=== PATIENT | female | born 1930 | race Caucasian/White ===

== ENCOUNTER 2016-08-17 12:08 | Outpatient (CLI) | payer OTHER ==
[2012-10-28 14:31] VITALS: BMI 30.6
[2016-08-17 14:25] LABS: BILIRUBIN,URINE Negative (NEGATIVE); KETONES,URINE Negative (NEGATIVE); LEUKOCYTE ESTERASE ,URINE Negative (NEGATIVE); NITRITE,URINE Negative (NEGATIVE); PH,URINE 6.5 (5-9); PROTEIN,URINE Negative (NEGATIVE); URINE, BLOOD Negative (NEGATIVE)
[2016-08-17 14:27] LABS: BASOPHILS % (AUTO) 0.6 % (0.0-3.0); EOSINOPHILS # (AUTO) 0.2 K/ul (0.0-0.7); EOSINOPHILS % (AUTO) 3.1 % (0.0-7.0); HEMATOCRIT 40.1 % (37.0-47.0); HEMOGLOBIN 13.4 g/dl (12.0-16.0); IMMATURE GRANULOCYTE % (AUTO) 0.6 % (0.0-5.0); LYMPHOCYTES # (AUTO) 1.3 K/uL (0.60-3.4); LYMPHOCYTES % (AUTO) 20.2 (10.0-50.0); MEAN CORPUSCULAR HEMOGLOBIN 30.3 pg (27.0-31.0); MEAN CORPUSCULAR HGB CONC 33.4 (31.8-35.4); MEAN CORPUSCULAR VOLUME 90.7 fl (81.0-99.0); MONOCYTES # (AUTO) 0.7 K/uL (0.4-2.0); MONOCYTES % (AUTO) 10.5 (0-10); NEUTROPHILS # (AUTO) 4.1 K/ul (2.0-6.9); PLATELET COUNT 244 10^3/uL (140-440); RED BLOOD COUNT 4.42 10^6/ul (4.20-5.40); WHITE BLOOD COUNT 6.38 K/ul (4.6-10.2)
[2016-08-17 14:29] LABS: ADD URINE MICROSCOPIC NO
[2016-08-17 15:35] LABS: ALBUMIN 3.7 g/dL (3.4-5.0); ALBUMIN/GLOBULIN RATIO 1.16; ANION GAP 13.5; BILIRUBIN,TOTAL 0.88 mg/dL (0.00-1.20); BUN/CREATININE RATIO 17.8; CALCIUM 9.3 mg/dL (8.2-10.2); CHOL/HDL RATIO 2.2 (4.5-5.5); CREATININE 0.73 mg/dL (0.60-1.30); POTASSIUM 3.5 mmol/L (3.5-5.10); TOTAL PROTEIN 6.9 g/dL (5.8-8.1)
== END 2016-08-17 12:09 | disposition home or self-care (01) ==
LOC: LAB 12:08
PROVIDERS: ATTEND General Practice
DX: E78.5 Hyperlipidemia, unspecified (principal); I10 Essential (primary) hypertension; R20.0 Anesthesia of skin; Z79.899 Other long term (current) drug therapy
CPT/HCPCS: 36415; 80053; 80061; 81001; 82607; 83036; 84443; 85025

== ENCOUNTER 2016-09-08 09:52 | Outpatient (CLI) ==
[2012-10-28 14:31] VITALS: BMI 30.6
--- NOTE | 2016-09-08 11:20 | MAMMO ---
EXAM: Screening mammogram HISTORY: Screening COMPARISON: 08/18/2015 FINDINGS: MLO and CC views of the right and left breast were performed. The breast tissue is almos t entirely fatty replaced. There is no evidence for mass, asymmetry, distortion, or suspicious calc ifications in either breast. IMPRESSION: 1. No mammographic evidence of malignancy in the right or left breast. 2. Annual screening mammogram is recommended in one year. BIRADS category 1, negative examination
== END 2016-09-08 09:53 | disposition home or self-care (01) ==
LOC: RAD 09:52
PROVIDERS: ATTEND General Practice
DX: Z12.31 Encounter for screening mammogram for malignant neoplasm of breast (principal)

== ENCOUNTER 2016-09-19 11:28 | Outpatient (CLI) ==
[2012-10-28 14:31] VITALS: BMI 30.6
[2016-09-19 15:50] LABS: BASOPHILS # (AUTO) 0.1 K/uL (0-0.2); EOSINOPHILS # (AUTO) 0.3 K/ul (0.0-0.7); HEMATOCRIT 40.5 % (37.0-47.0); HEMOGLOBIN 13.2 g/dl (12.0-16.0); IMMATURE GRANULOCYTE % (AUTO) 0.7 % (0.0-5.0); LYMPHOCYTES # (AUTO) 1.2 K/uL (0.60-3.4); LYMPHOCYTES % (AUTO) 15.9 (10.0-50.0); MEAN CORPUSCULAR HEMOGLOBIN 30.2 pg (27.0-31.0); MEAN CORPUSCULAR HGB CONC 32.6 (31.8-35.4); MEAN CORPUSCULAR VOLUME 92.7 fl (81.0-99.0); MONOCYTES # (AUTO) 0.6 K/uL (0.4-2.0); NEUTROPHILS # (AUTO) 5.1 K/ul (2.0-6.9); NEUTROPHILS % (AUTO) 70.4; PLATELET COUNT 270 10^3/uL (140-440); RED BLOOD COUNT 4.37 10^6/ul (4.20-5.40); WHITE BLOOD COUNT 7.29 K/ul (4.6-10.2)
[2016-09-19 15:55] LABS: BILIRUBIN,URINE Negative (NEGATIVE); KETONES,URINE Negative (NEGATIVE); LEUKOCYTE ESTERASE ,URINE Negative (NEGATIVE); NITRITE,URINE Negative (NEGATIVE); PROTEIN,URINE Negative (NEGATIVE); URINE, BLOOD Negative (NEGATIVE)
[2016-09-19 16:03] LABS: ADD URINE MICROSCOPIC NO
== END 2016-09-19 11:29 | disposition home or self-care (01) ==
LOC: LAB 11:28
PROVIDERS: ATTEND General Practice
DX: J32.0 Chronic maxillary sinusitis (principal); R30.9 Painful micturition, unspecified
CPT/HCPCS: 36415; 81001; 85025

== ENCOUNTER 2017-01-26 09:00 | Outpatient (RCR) ==
[2012-10-28 14:31] VITALS: BMI 30.6
--- NOTE | 2017-01-16 15:01 | RS.OPPTEV2 ---
Date of Note: 01/16/17 Visit #: 1 Date of Evaluation: 01/16/17 Payer Source: MEDICARE Surgery Performed?: Yes (L Total shld ) Procedure Performed: L Reverse Total shld replacement Date of Procedure: 11/22/16 Treatment Diagnosis: OA L shld History of Condition/Mechanism of Injury:: pt with long history of arthritic changes L shld with pain and decreased ROM. pt s/p L reverse total shld replacement on 11/22/16. Prior Level of Function.....Patient was independent with: ADL's, Self Care, Ambulation/Mobility Functional Limitations: ADL's, Reaching, Pushing, Lifting, Carrying Current Subjective/complaints:: pt states that she is going to [place] in 3 weeks to stay for the winter. pt states that she has been using pulleys at home. pt lives with sister. Treatment Side (optional): Left *Precautions: no external rotation past neutral Medical History Medical History: Hypertension Medical History Comments:: pain management for back, macular degeneration. Surgical History Comments:: nerve surgery in her neck when she was 28yrs old. Smoking Status: Former smoker Hx Home Medications: metoprolol tartrate, simvastatin, losartan, gabapentin, amlodipine besylate, furosemide, lorazepam, zolpidem, potassium, preservision, multivitamin, hydrocodone/acetaminophen Patient's Goals: pt goal is to be able to use her L UE functionally with less pain. Pain Assessment - Pain Description Pain Location: L shld Pain Description: Tightness, Aching Current Pain Intensity: 4-5/10 at rest, 7-8/10 with ROM Worst Pain Intensity: 8/10 Other Comments regarding Pain:: pain increases with ROM Functional Outcome Measure UE Functional Index: 53 (34%) - G Codes & Severity Modifier G Codes & Modifier: mobility current CJ. mobility goal CI Source of G Code score: upper extremity functional index Observation - Observation Inspection: min edema L shld Posture: Forward Head, Rounded Shoulders, Increased Thoracic Kyphosis Handedness: Right Gait - Gait Pattern General Gait Pattern Observation: No Deviations/Normal Gait Comments: pt amb without AD independently General Range of Motion: RUE and BLE WFL's Muscle Strength: RUE and BLE 5/5. Typewriter Mechanic strength RUE 32#, LUE 20# Shoulder ROM: Right WFL's Shoulder Muscle Strength: Right WFL's - Left Shoulder ROM Left Shoulder Flexion: 78 (AROM) Left Shoulder Abduction: 60 (AROM) Left Shoulder ROM Limitations: Soft Tissue Tightness, Pain Comments: AAROM L shld flex 86, abd 68 - Left Shoulder Strength Left Shoulder Flexion: 3- Fair- Left Shoulder Abduction: 2+ Poor+ Left Shoulder Adduction: 3 Fair Left Shoulder Internal Rotation: 3 Fair Palpation Palpation Findings: Tenderness (anterior L shld) Sensation - Sensation Right Upper Extremity: Intact/Normal Left Upper Extremity: Intact/Normal Right Lower Extremity: Impaired Left Lower Extremity: Impaired (B feet R worse than L) Sensation Description: Tingling Balance - Sitting Balance Static Sitting Balance: Normal Dynamic Sitting Balance: Normal - Standing Balance Static Standing Balance: Normal Dynamic Standing Balance: Normal - Heat/Cryotherapy Treatment: Cryotherapy Comments:: L shld Interventions - Exercise/Activities/Manual Therapy Exercises/Activities: pt performed AAROM shld flex with pulleys, wall walking flex and abd, pt also instructed in isometric shld flex, ext, abd, and add. pt also received gentle AAROM shld flex and abd, elbow flex/ext Manual Therapy: n/a HOME EXERCISE PROGRAM: pt given written HEP with isometric shld flex, ext, abd, add, as well as wand ex for AAROM shld flex. - Charges Total Direct Minutes: 52 Total Treatment Time: 52 Procedures billed for this date of service:: eve diaz Assessment Assessment: pt presents with decreased L shld ROM, strength, pain in L shld, as well as edema L shld. pt requires skilled PT for therex for gentle stretching, ROM as well as strengthening, along with modalities to decrease pain and increase ROM and strength to improve functional mobility Patient Education: Home Exercise Program, Activity Modification, Education of Plan of Care Rehab Potential: Good Short Term Goals Goal #1: Improved L shld AAROM flex 90, abd 75 Goal to be met by: 01/23/17 Goal #2: pt rate pain <7/10 with activity Goal to be met by: 01/23/17 Printer Assistant Goals Goal #1: pt demonstrate improved L shld AROM flex 100 abd 90 Goal to be met by: 02/06/17 Goal #2: pt with decreased pain L shld <5/10 with mobility Goal to be met by: 02/06/17 Goal #3: pt able to perform functional activities with LUE with decreased pain. Goal to be met by: 02/06/17 Goal #4: pt with improved strength L shld 3+/5 to 4-/5 and independent with HEP Goal to be met by: 02/06/17 Plan - Treatment to be Provided Procedures: Therapeutic Exercises, Therapeutic Activity, Neuromuscular Rehab, Manual Therapy, Patient Education Modalities: Electrical Stimulation, Cryotherapy, Hot Packs - Treatment Plan Frequency: 2 X week Duration: 3 weeks ORDER # VISITS AND/OR THROUGH DATE: 02/06/17 - Treatment Code (1) Pain in joint, shoulder region Code(s): M25.519 - PAIN IN UNSPECIFIED SHOULDER Qualifiers: Laterality: left Qualified Code(s): M25.512 - Pain in left shoulder (2) Aftercare following shoulder joint replacement surgery Code(s): Z47.1 - AFTERCARE FOLLOWING JOINT REPLACEMENT SURGERY; Z96.619 - PRESENCE OF UNSPECIFIED ARTIFICIAL SHOULDER JOINT Qualifiers: Laterality: left Qualified Code(s): Z47.1 - Aftercare following joint replacement surgery; Z96.612 - Presence of left artificial shoulder joint; Z96.612 - Presence of left artificial shoulder joint (3) Primary osteoarthritis of left shoulder Code(s): M19.012 - PRIMARY OSTEOARTHRITIS, LEFT SHOULDER
--- NOTE | 2017-01-19 10:02 | RS.OPPTDN ---
Subjective Date of Note: 01/19/17 Visit #: 2 Date of Evaluation: 01/16/17 Payer Source: MEDICARE Treatment Diagnosis: OA L shld Current Subjective/complaints:: Patient reports she is working on HEP as instructed. Reports soreness anterior left shoulder joint with AAROM exercises. Reports bilateral upper trap discomfort with increased activity at home. *Precautions: no external rotation past neutral Pain Assessment - Pain Description Pain Location: L shld Pain Description: Tightness, Aching Current Pain Intensity: 4/10 at rest, 7/10 with ROM Interventions - Exercise/Activities/Manual Therapy Exercises/Activities: In supine, PROM of the left shoulder. AAROM shld flex, scaption, and short IR/ER. Wand for chest press, short range flexion, and short range ER. Isometrics of left shoulder flex, ext, add, abd, and IR/ER. Isometric left elbow flex/ext. Wall walking shouler flex at finger ladder. In sitting, AAROM into flexion, scaption, and limited abduction. Clasped hands for AA flexion and scapular pro/retraction. Green theraband for bilateral shoulder extension and scapular retraction. Total minutes of Exercise: 30mins Manual Therapy: n/a HOME EXERCISE PROGRAM: pt given written HEP with isometric shld flex, ext, abd, add, as well as wand ex for AAROM shld flex. Wall walking. Green theraband for scapular retraction. - Objective Findings Observations,measurements,etc.: Patient demos flexion to 95 degrees with wall walking. - Charges Total Direct Minutes: 30mins Total Treatment Time: 35mins Procedures billed for this date of service:: EX2 Assessment: Patient is able to progress with AAROM and postural strengthening exercises. Patient Education: Body/Joint mechanics, Home Exercise Program, Home Safety, Activity Modification Patient demonstrates compliance with HEP?: Yes Short Term Goals Goal #1: Improved L shld AAROM flex 90, abd 75 Goal to be met by: 01/23/17 Progress towards Goal:: Progressing Goal #2: pt rate pain <7/10 with activity Goal to be met by: 01/23/17 Progress towards Goal:: Progressing Acid Condenser Goals Goal #1: pt demonstrate improved L shld AROM flex 100 abd 90 Goal to be met by: 02/06/17 Goal #2: pt with decreased pain L shld <5/10 with mobility Goal to be met by: 02/06/17 Goal #3: pt able to perform functional activities with LUE with decreased pain. Goal to be met by: 02/06/17 Progress towards goal: Progressing Goal #4: pt with improved strength L shld 3+/5 to 4-/5 and independent with HEP Goal to be met by: 02/06/17 Progress towards goal: Progressing Plan PLAN OF CARE EXPIRES ON:: 02/06/17 ORDER # VISITS AND/OR THROUGH DATE: 02/06/17 PLAN: Progress AAROM and strengthening exercise to increase patient functional use of the left UE.
--- NOTE | 2017-01-26 10:40 | RS.OPPTDN ---
Subjective Date of Note: 01/26/17 Visit #: 3 Date of Evaluation: 01/16/17 Payer Source: MEDICARE Treatment Diagnosis: OA L shld Current Subjective/complaints:: Patient reports she is doing well with HEP and will continue. She will be leaving for [place] next weekend to stay for the winter and is prepared for discharge with HEP. *Precautions: no external rotation past neutral Pain Assessment - Pain Description Pain Description: mild to mod depending on activity level Interventions - Exercise/Activities/Manual Therapy Exercises/Activities: In supine, PROM of the left shoulder. AAROM shld flex, scaption, and short IR/ER. Wand for chest press, short range flexion, and short range ER. Isometrics of left shoulder flex, ext, add, abd, and IR/ER. Isometric left elbow flex/ext. Isometric shoulder horizontal add with ball between hands. In sitting, wand for flexion and modified abduction for traps. AAROM into flexion, scaption, and limited abduction. Clasped hands for AA flexion and scapular pro/retraction. Green theraband for bilateral shoulder extension and scapular retraction. Patient given blue theraband for porgression with Total minutes of Exercise: 35mins Manual Therapy: n/a HOME EXERCISE PROGRAM: pt given written HEP with isometric shld flex, ext, abd, add, as well as wand ex for AAROM shld flex. Wall walking. Green theraband for scapular retraction. - Objective Findings Observations,measurements,etc.: Patient demos left shoulder flexion to 85 degrees actively and 90 to 95 degrees with light assist. Patients FOM with Upper Extremity Scale to 61/80 or 23.75% (was 53/80 or 33.75% on Eval). - Charges Total Direct Minutes: 35mins Total Treatment Time: 35mins Procedures billed for this date of service:: EX2 Assessment: Patient is progressing with light to mod daily activities and has met her STG's. She is independent with HEP and will continue. She will be discharged at this time as she will be going to [place] for the winter. Patient Education: Body/Joint mechanics, Home Exercise Program, Home Safety, Activity Modification Patient demonstrates compliance with HEP?: Yes Short Term Goals Goal #1: Improved L shld AAROM flex 90, abd 75 Goal to be met by: 01/23/17 Progress towards Goal:: Met Goal #2: pt rate pain <7/10 with activity Goal to be met by: 01/23/17 Progress towards Goal:: Met Front Desk Representative Goals Goal #1: pt demonstrate improved L shld AROM flex 100 abd 90 Goal to be met by: 02/06/17 Progress towards goal: Progressing Goal #2: pt with decreased pain L shld <5/10 with mobility Goal to be met by: 02/06/17 Progress towards goal: Progressing Goal #3: pt able to perform functional activities with LUE with decreased pain. Goal to be met by: 02/06/17 Progress towards goal: Progressing Goal #4: pt with improved strength L shld 3+/5 to 4-/5 and independent with HEP Goal to be met by: 02/06/17 Progress towards goal: Progressing Plan PLAN OF CARE EXPIRES ON:: 02/06/17 ORDER # VISITS AND/OR THROUGH DATE: 02/06/17 PLAN: Discharge with HEP.
--- NOTE | 2017-01-26 16:05 | RS.OPPTDC ---
Date of Discharge: 01/26/17 Date of Evaluation: 01/16/17 Number of Visits: 3 Treatment Diagnosis: OA L shld Current Level of Function: pt has improved L shld AROM flex 85 AAROM 90, pt is independent with HEP Current Complaints/Gains: pt states she is going to [place] for winter. pt states she is working on HEP and will continue. pt states she is doing mostly light to mod daily activities. Functional Outcome Measure UE Functional Index: 61 - G Codes & Severity Modifier G Codes & Modifier: mobility dc CJ. mobility goals CI Source of G Code score: UE functional index General Range of Motion: WFL's except L shld AROM flex 85 AAROM 90 Muscle Strength: BLE and RUE 5/5, LUE shld flex 3-/5 Interventions - Exercise/Activities/Manual Therapy Exercises/Activities: In supine, PROM of the left shoulder. AAROM shld flex, scaption, and short IR/ER. Wand for chest press, short range flexion, and short range ER. Isometrics of left shoulder flex, ext, add, abd, and IR/ER. Isometric left elbow flex/ext. Isometric shoulder horizontal add with ball between hands. In sitting, wand for flexion and modified abduction for traps. AAROM into flexion, scaption, and limited abduction. Clasped hands for AA flexion and scapular pro/retraction. Green theraband for bilateral shoulder extension and scapular retraction. Patient given blue theraband for porgression with Manual Therapy: n/a HOME EXERCISE PROGRAM: pt given written HEP with isometric shld flex, ext, abd, add, as well as wand ex for AAROM shld flex. Wall walking. Green theraband for scapular retraction. - Charges Total Direct Minutes: n/a Total Treatment Time: n/a Procedures billed for this date of service:: n/a Assessment Assessment: pt has met STG's and progressing toward LTG's, unable to meet due to having to stop PT due to moving out of service area. Patient Education: Education of diagnosis, Home Exercise Program, Home Safety, Activity Modification, Education of Plan of Care Rehab Potential: Good Short Term Goals Goal #1: Improved L shld AAROM flex 90, abd 75 Goal to be met by: 01/23/17 Progress towards Goal:: Met Goal #2: pt rate pain <7/10 with activity Goal to be met by: 01/23/17 Progress towards Goal:: Met Health Services Manager Goals Goal #1: pt demonstrate improved L shld AROM flex 100 abd 90 Goal to be met by: 02/06/17 Progress towards goal: Progressing Goal #2: pt with decreased pain L shld <5/10 with mobility Goal to be met by: 02/06/17 Progress towards goal: Progressing Goal #3: pt able to perform functional activities with LUE with decreased pain. Goal to be met by: 02/06/17 Progress towards goal: Progressing Goal #4: pt with improved strength L shld 3+/5 to 4-/5 and independent with HEP Goal to be met by: 02/06/17 Progress towards goal: Progressing Plan Comments: moving out of service area
== END 2017-02-08 ==
PROVIDERS: ATTEND Orthopaedic Surgery
DX: M19.012 Primary osteoarthritis, left shoulder (principal)

== ENCOUNTER 2017-08-21 12:24 | Outpatient (CLI) | payer OTHER ==
[2016-09-08 10:06] VITALS: BMI 30.6
== END 2017-08-21 12:25 | disposition home or self-care (01) ==
LOC: FCC-LAB 12:24
PROVIDERS: ATTEND General Practice
DX: E78.5 Hyperlipidemia, unspecified (principal); I10 Essential (primary) hypertension; Z79.899 Other long term (current) drug therapy
CPT/HCPCS: 36415; 80053; 80061; 81001; 85025

== ENCOUNTER 2017-08-22 12:42 | Outpatient (CLI) | payer OTHER ==
[2016-09-08 10:06] VITALS: BMI 30.6
--- NOTE | 2017-08-22 15:06 | MRI ---
EXAM: MRI lumbar spine without IV contrast. DATE: 08/22/2017. HISTORY: Sacral coccygeal disorders. Low back pain and tail bone pain. Right leg numbness. TECHNIQUE: Sagittal and axial T1W and T2W sequences of the lumbar spine along with sagittal IR and c oronal T2W sequences were obtained using 1.2 Jennifer magnet. No IV contrast. COMPARISON: MRI L-spine 08/18/2014. CT abdomen/pelvis 12/22/2011. FINDINGS: There are five [id number] lumbar vertebra. A 9 degree rightward curvature of the low er thoracic and lumbar spine is present, with the apex of curvature at L2-3. A 1.7 mm anterior sublu xation of L3 relative to L4, and 3.4 mm anterolisthesis of L4 relative to L5 are due to facet disease . There is also approximately 4.6 mm right lateral subluxation of L3 relative to L4. No other sublu xation, acute fracture, osseous malignancy, or pars interarticularis defect is demonstrated. Minor I R hyperintensity within the right L5 pedicle persists. Small/moderate osteophytes are present throug hout the lumbar spine. Bone marrow signal is overall normal. T2W/T1W bright, 17 x 15 x 19 mm focus in the L3 body is c/w benign hemangioma. Schmorl's node at the L2 inferior endplate appears new sinc e August 2014, and may be subacute. The L3 superior endplate Schmorl's node is chronic, but new since 2014. Mild L2-3 and L5-S1 disc space narrowing is detected. No acute sacral fracture or stress reac tion is identified. Patchy areas of T2W/T1W bright signal in bilateral sacral ala are consistent wit h fatty infiltration. SI joints are unremarkable. Conus medullaris terminates at L1. Visible spina l cord is normal. No retroperitoneal lymphadenopathy, paraspinal mass, or aortic aneurysm is detected. Atherosclerotic plaques are present in the aortic wall. Psoas muscles are normal. There is moderate bilateral post erior paraspinal muscle atrophy. A T2W bright, T1W dark, 2.5 x 2.8 cm lesion in the left lobe liver is similar to August 2014, and correlates with a water density lesion on abdominal CT scan. Visible po rtions of the spleen, right adrenal gland and kidneys reveal no definitive malignancy; however, these structures are limited by breathing motion artifacts. A dromedary hump in the lateral cortex left k idney is unchanged. A left adrenal gland body 9.6 x 9.1 mm focus has T2W/T1W intermediate signal. M oderate number of descending colon and sigmoid colon diverticuli are visible. No bowel obstruction o r distinct malignancy is demonstrated. Segmental analysis: T11-12: Minor facet arthropathy does not cause central stenosis or foraminal stenosis. T12-L1: Small posterior disc bulge does not cause cord compression, central stenosis or foraminal st enosis. L1-2: Small concentric disc bulge, mild facet arthropathy, and minor ligamentum flavum hypertrophy c ause minor/mild bilateral foraminal narrowing. No central canal stenosis. L2-3: Small concentric disc bulge, mild bilateral facet arthropathy and mild ligamentum flavum hyper trophy cause moderate central canal stenosis and mild bilateral foraminal stenoses. L3-4: Minor anterior subluxation of L3, moderate facet arthropathy, and moderate ligamentum flavum h ypertrophy cause moderate/marked central canal stenosis, minor right foraminal narrowing, and mild/ m oderate narrowing of the left foraminal opening. L4-5: Minor anterolisthesis of L4, pseudodisc bulge, mild right facet arthropathy, moderate left fac et arthropathy, and mild ligamentum flavum hypertrophy cause mild central canal stenosis, minor right foraminal narrowing, and mild left foraminal stenosis. L5-S1: Minor posterior disc bulge and mild facet arthropathy cause mild right foraminal narrowing. No central canal stenosis. IMPRESSIONS: 1. Lumbar spine mild spondylosis, minor rightward curvature, mild facet arthropathy, multilevel DDD - - similar to August 2014. 2. Multilevel lumbar foraminal stenoses, most marked at left L3-4 foramen. 3. Multilevel central canal stenoses (L2-3: Moderate. L3-4: Moderate/marked. L4-5: Mild). 4. Bone marrow fatty infiltration - consider osteopenia. 5. Bone, benign hemangioma in the L3 body. 6. Stable left adrenal lesion - likely adenoma. 7. Descending / sigmoid colon diverticulosis. 8. Caudate lobe liver lesion - likely simple cyst. 9. Abdominal aortic atherosclerosis (marked).
--- NOTE | 2017-08-23 16:41 | MRI ---
EXAM: MRI sacrum and coccyx without IV contrast. DATE: 08/22/2017. HISTORY: Low back pain and tail bone pain. Right leg numbness. TECHNIQUE: Multiplanar, multi sequence imaging of the sacrum/coccyx was performed without IV contras t using 1.2 Jennifer magnet.. COMPARISON: MRI L-spine 08/22/2017. MRI sacrum 08/18/2014. FINDINGS: No acute fracture, subluxation, malignancy, or stress reaction is identified within the sa marc or coccyx. T1W bone marrow signal is heterogeneously bright, suggesting fatty infiltration. Sm all anterior osteophytes are noted at the SI joints. No acute sacroiliitis is detected. Moderate po sterior paraspinal muscle atrophy is noted at L5 and S1 levels. Psoas muscles are unremarkable. No pelvic bones acute fracture, osseous malignancy, or stress reaction is identified. Minor IR hyper intensity deep to the iliacus muscle bilaterally could represent minor periosteal reaction along the anterior surface of the iliac bones or minor muscle strains. No hip dislocation, fracture, malignanc y, or joint effusion is apparent. Visible portion of the lumbar spine reveals small L4-5 and L5-S1 disc bulges. Please see MRI lumbar spine report of the same date for full details of the lumbar spine. Urinary bladder is unremarkable. Uterus and ovaries are not visible. Multiple descending and sigmoi d colon diverticuli are present without acute diverticulitis. No pelvic mass or lymphadenopathy is a pparent. IMPRESSIONS: 1. Normal sacrum and coccyx. 2. Lower lumbar spine mild DDD. 3. S/P hysterectomy and oophorectomy. 4. Descending/sigmoid colon diverticulosis.
== END 2017-08-22 12:43 | disposition home or self-care (01) ==
LOC: RAD 12:42
PROVIDERS: ATTEND General Practice
DX: M53.3 Sacrococcygeal disorders, not elsewhere classified (principal); M79.604 Pain in right leg; M79.671 Pain in right foot

== ENCOUNTER 2017-12-27 10:16 | Outpatient (CLI) ==
[2016-09-08 10:06] VITALS: BMI 30.6
== END 2017-12-27 10:17 | disposition home or self-care (01) ==
LOC: RHC-LAB 10:16
PROVIDERS: ATTEND General Practice
DX: E78.5 Hyperlipidemia, unspecified (principal); I10 Essential (primary) hypertension; J44.9 Chronic obstructive pulmonary disease, unspecified; G47.30 Sleep apnea, unspecified; Z79.899 Other long term (current) drug therapy; R13.10 Dysphagia, unspecified
CPT/HCPCS: 36415; 80053; 80061; 81001; 85025

== ENCOUNTER 2018-01-15 14:11 | Outpatient (CLI) ==
[2016-09-08 10:06] VITALS: BMI 30.6
== END 2018-01-15 14:12 | disposition home or self-care (01) ==
LOC: CAR 14:11
PROVIDERS: ATTEND Psychiatry & Neurology Sleep Medicine
DX: G47.33 Obstructive sleep apnea (adult) (pediatric) (principal)
CPT/HCPCS: 95811

== ENCOUNTER 2018-06-19 08:22 | Outpatient (CLI) ==
[2016-09-08 10:06] VITALS: BMI 30.6
== END 2018-06-19 08:23 | disposition home or self-care (01) ==
LOC: RHC-LAB 08:22
PROVIDERS: ATTEND General Practice
DX: E78.5 Hyperlipidemia, unspecified (principal); I10 Essential (primary) hypertension; Z79.899 Other long term (current) drug therapy
CPT/HCPCS: 36415; 80053; 80061; 81001; 85025

== ENCOUNTER 2018-06-26 14:53 | Outpatient (CLI) | payer OTHER ==
[2016-09-08 10:06] VITALS: BMI 30.6
--- NOTE | 2018-06-26 15:32 | DI ---
EXAM: Chest two views HISTORY: Chronic obstructive pulmonary disease COMPARISON: 01/17/2016 TECHNIQUE: Two views of the chest were performed FINDINGS: Lungs are clear. Lungs are hyperinflated. There is no pleural effusion or pneumothorax. The heart is enlarged inch a in size. The mediastinal contour is unchanged, noting atherosclerosis. There are no acute abnormalities of the bones. Left shoulder arthroplasty is incompletely imaged. IMPRESSION: 1. No acute cardiopulmonary process. 2. Chronic obstructive pulmonary disease. 3. Cardiomegaly
== END 2018-06-26 14:54 | disposition home or self-care (01) ==
LOC: RAD 14:53
PROVIDERS: ATTEND General Practice
DX: J44.9 Chronic obstructive pulmonary disease, unspecified (principal); R06.02 Shortness of breath

== ENCOUNTER 2018-10-15 15:59 | Observation (INO) ==
[2018-10-15 17:09] VITALS: BMI 27.3
--- NOTE | 2018-10-15 19:10 | CT ---
EXAM: CT Head HISTORY: Hypertension, dizziness COMPARISON: None TECHNIQUE: CT head performed without contrast FINDINGS: There is no mass effect, midline shift, or intracranial hemmorhage. Lao white differenti ation is preserved. There is no extra-axial collection. The ventricles, sulci, and basal cisterns a re patent and symmetric. 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 Right frontal ence phalomalacia medially near the falx. Cerebral volume loss. There is no depressed calvarial fracture. Congenital nonunion C1 The mastoid air cells are clear. The visualized paranasal sinuses are clear. There are intracranial atherosclerotic calcifications. IMPRESSION: 1. No acute intracranial abnormality. 2. 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 Right frontal encephalomalacia medially near the falx. Cerebral volume loss.
--- NOTE | 2018-10-15 19:14 | DI ---
EXAM: Chest two views HISTORY: Hypertension, hypoxia, shortness of breath COMPARISON: 06/26/2018 TECHNIQUE: Two views of the chest were performed FINDINGS: The lungs are clear. There is no pleural effusion or pneumothorax. The heart is enlarged and unchanged in size. The mediastinal contour is unchanged, noting atherosclerosis. There are no acute abnormalities of the bones. Left shoulder arthroplasty. IMPRESSION: Cardiomegaly. No acute cardiopulmonary process.
[2018-10-15] MEDS ORDERED: ACETAMINOPHEN PO SCH (21:00)
[2018-10-15] MEDS ORDERED: COPPER PO SCH (21:00)
[2018-10-15] MEDS ORDERED: VITAMIN E PO SCH (21:00)
[2018-10-15] MEDS ORDERED: [UNRECOGNIZED DRUG - OTHER] PO SCH (21:00)
[2018-10-15] MEDS ORDERED: NON-FORMULARY MEDICATION (Zolpidem Tartrate [Ambien] 10 MG) PO SCH (21:00)
[2018-10-15] MEDS ORDERED: NON-FORMULARY MEDICATION (Metoprolol Tartrate [Metoprolol Tartrate] 100 MG) PO SCH (21:00)
[2018-10-15] MEDS ORDERED: LORAZEPAM 0.5 MG PO SCH ×2 (21:00)
[2018-10-15] MEDS ORDERED: [UNRECOGNIZED DRUG - OTHER] PO SCH (21:00)
[2018-10-15] MEDS ORDERED: HYDROCODONE PO SCH (21:00)
[2018-10-15] MEDS ORDERED: NON-FORMULARY MEDICATION (Losartan Potassium [Losartan Potassium] 50 MG) PO SCH (21:00)
[2018-10-15] MEDS ORDERED: ASCORBIC ACID PO SCH (21:00)
[2018-10-15] MEDS ORDERED: ZINC PO SCH (21:00)
[2018-10-15] MEDS ORDERED: VITAMIN A PO SCH (21:00)
[2018-10-15] MEDS ORDERED: HYDROCHLOROTHIAZIDE PO SCH (21:00)
[2018-10-15] MEDS: LOPRESSOR PO SCH (21:38)
[2018-10-15] MEDS: NON-FORMULARY MEDICATION (Gabapentin [Gabapentin] 600 MG) PO SCH (21:38)
[2018-10-15] MEDS ORDERED: ZOLPIDEM TARTRATE 5 MG PO SCH (23:00)
[2018-10-15] MEDS: [UNRECOGNIZED DRUG - OTHER] PO PRN (23:10)
[2018-10-15] MEDS: HYDROCODONE PO PRN (23:10)
[2018-10-15] MEDS: ACETAMINOPHEN PO PRN (23:10)
[2018-10-16] MEDS ORDERED: ZINC PO SCH (08:00)
[2018-10-16] MEDS ORDERED: COPPER PO SCH (08:00)
[2018-10-16] MEDS ORDERED: ASCORBIC ACID PO SCH (08:00)
[2018-10-16] MEDS ORDERED: [UNRECOGNIZED DRUG - OTHER] PO SCH (08:00)
[2018-10-16] MEDS ORDERED: VITAMIN A PO SCH (08:00)
[2018-10-16] MEDS ORDERED: VITAMIN E PO SCH (08:00)
--- NOTE | 2018-10-16 08:58 | PCM.CONS ---
CONSULTING PROVIDER: Dr. ELOY VANESSA ATTENDING PROVIDER: Dr. JM SHE[facility]AN[facility] DATE OF SERVICE: 10/16/18 SUBJECTIVE: This 88 year old WHITE/ F was hospitalized 10/15/18. The patient was seen on consultation because of uncontrolled hypertension, dizziness and headache. The patient's condition is stable. Her blood pressure is 144/69 with Cozaar 50mg twice a day, Hydrochlorothiazide 12.5mg PO twice a day and Lasix 20mg daily, Amlodipine 10mg once and Metoprolol 50mg twice a day. The patient has chronic leg edema. REVIEW OF SYSTEMS: CONSTITUTIONAL: No night sweats. No fatigue, malaise, lethargy. No fever or chills. HEENT: Eyes: No visual changes. No eye pain. No eye discharge. ENT: No runny nose. No epistaxis. No sinus pain. No odynophagia. No congestion. RESPIRATORY: No cough, no congestion. No hemoptysis. No shortness of breath. CARDIOVASCULAR: No angina symptoms. No CHF symptoms. No atypical chest pain for CAD. No palpitations. No orthopnea. GASTROINTESTINAL: No abdominal pain. No nausea or vomiting. No diarrhea or constipation. No hematemesis. No hematochezia. GENITOURINARY: No urgency. No frequency. No dysuria. No hematuria. No obstructive symptoms. No discharge. No pain. No significant abnormal bleeding. MUSCULOSKELETAL: No musculoskeletal pain; no joint swelling. NEUROLOGICAL: Awake, alert, oriented to time, place and person. Mild headache. No neck pain. No syncope. No seizures. Dizziness. PSYCHIATRIC: Not anxious. No depression. No suicidal thoughts. No homicidal thoughts. SKIN: No rash. No lesions. No wounds. ENDOCRINE: No unexplained weight loss. No weight gain. HEMATOLOGIC/LYMPHATIC: No anemia. No purpura. No petechiae. No prolonged or excessive bleeding. No palpable lymph nodes. ALLERGIES: Acetaminophen Codeine Penicillins Propoxyphene MEDICATIONS: Centrum Complete one each PO daily Preservision ATED soft gel two each PO daily Hydrocodone/Acetaminophen 7.5-325 on each three times a day Ambien 10mg PO bedtime Metoprolol Tartrate 100mg PO twice a day Amlodipine 10mg PO daily Gabapentin 600mg PO three times a day Lorazepam 0.5mg PO daily Furosemide 20mg PO daily Cristino-Con 10meq PO daily Zocor 40mg Po daily SOCIAL HISTORY: The patient is a nonsmoker. No alcohol abuse. . PHYSICAL EXAMINATION: GENERAL: The patient is awake, alert and oriented, sitting in bed in no distress. VITAL SIGNS: Temperature 97.9 F, Pulse 74, Respiratory Rate 18, BP 144/69, Pulse Ox 98% HEENT: Head normocephalic, atraumatic. Eyes: Extraocular muscles are intact. Pupils are equal, round and reactive to light and accommodation. Ears: No lesions. Nose appeared normal. Throat: No exudate or erythema. NECK: Supple. No JVD, no carotid bruit. No lymphadenopathy or thyromegaly. LUNGS: Decreased breath sounds. Clear to auscultation. Percussion note normal. Chest symmetrical. HEART: S1, S2, no S3. No murmurs. No cyanosis or clubbing. No ascites. Pulses: Dorsalis pedis and posterior tibial pulses +1 to +2 both sides. ABDOMEN: Soft. Non-tender. Bowel sounds active. No CVA tenderness. No mass felt. EXTREMITIES: Trace to +1 edema with dark pigmentation from chronic leg edema. Full range of motion of all extremities, equal. NEUROLOGIC: No focal deficit. Cranial nerves II through XII are grossly intact. No headache, no double vision or headache. SKIN: Warm and dry. Intact. Turgor-normal. LYMPHATIC: No palpable lymph nodes/no lymphedema. MUSCULOSKELETAL: Normal joints with no swelling. Muscle tone is normal. LAB REVIEW: 10/16/18 04:43 10/16/18 04:43 10/16/18 04:43: Sodium 140.3, Potassium 3.72, Chloride 100.8, Carbon Dioxide 33.0 H, Anion Gap 10.22, BUN 15.8, Creatinine 0.65, Estimated GFR (MDRD) 86.00, BUN/Creatinine Ratio 24.30, Glucose 84.1, Calcium 9.28, Total Bilirubin 0.97, AST 31.4, ALT 17.2, Alkaline Phosphatase 72.6 D, Total Protein 6.58, Albumin 4.13, Globulin 2.45, Albumin/Globulin Ratio 1.68 10/16/18 04:43: WBC 5.00, RBC 4.47, Hgb 13.4, Hct 41.0, MCV 91.7, MCH 30.0, MCHC 32.7, RDW Coeff of Linda 13.0, Plt Count 203, Immature Gran % (Auto) 0.4, Neut % (Auto) 55.0, Lymph % (Auto) 28.8, [place] % (Auto) 9.6, Eos % (Auto) 5.4, Baso % (Auto) 0.8, Immature Gran # (Auto) 0.0, Neut # (Auto) 2.8, Lymph # (Auto ) 1.4, [place] # (Auto) 0.5, Eos # (Auto) 0.3, Baso # (Auto) 0.0 10/15/18 17:44: Procalcitonin < 0.05 10/15/18 17:44: D-Dimer (Manual) 355.61 10/15/18 17:44: Sodium 143.0, Potassium 3.98, Chloride 102.0, Carbon Dioxide 31.5 H, Anion Gap 13.48, BUN 15.2, Creatinine 0.70, Estimated GFR (MDRD) 79.00, BUN/Creatinine Ratio 21.71, Glucose 82.5, Calcium 9.67, Total Bilirubin 0.87, AST 26.8, ALT 20.3, Alkaline Phosphatase 110.5, NT-Pro-B Natriuret Pep 920.000 H , Total Protein 7.55, Albumin 4.69, Globulin 2.86, Albumin/Globulin Ratio 1.63, TSH 1.130 10/15/18 17:44: WBC 5.89, RBC 4.74, Hgb 14.3, Hct 43.4, MCV 91.6, MCH 30.2, MCHC 32.9, RDW Coeff of Linda 12.9, Plt Count 207, Immature Gran % (Auto) 0.3, Neut % (Auto) 69.2, Lymph % (Auto) 18.2, [place] % (Auto) 8.7, Eos % (Auto) 2.9, Baso % (Auto) 0.7, Immature Gran # (Auto) 0.0, Neut # (Auto) 4.1, Lymph # (Auto ) 1.1, [place] # (Auto) 0.5, Eos # (Auto) 0.2, Baso # (Auto) 0.0 ASSESSMENT: 1. Uncontrolled hypertension which is controlled now 2. Dizziness and headache could be related to hypertension. No neurological deficit. The patient is up and about with normal neurological status. 3. History of dyslipidemia 4. Chronic leg edema 5. Neuropathy below. RECOMMENDATIONS/PLAN: 1. Continue all medications 2. DASH diet discussed 3. Cut down on salt intake 4. Elevate legs 5. Continue same medications, Compliance maybe the problem 6. Echo and Carotid scan. Plan and coordination of the patient's care discussed in the presence of Athletic Equipment Custodian and Nurse. SCRIBED BY: Crow LUA scribed while in presence of service performed by Dr. ELOY VANESSA on 10/16/18 ([id number])
[2018-10-16] MEDS ORDERED: NON-FORMULARY MEDICATION (Amlodipine Besylate [Amlodipine Besylate] 10 MG) PO SCH (09:00)
[2018-10-16] MEDS ORDERED: MULTIVITAMIN PO SCH (09:00)
[2018-10-16] MEDS ORDERED: FUROSEMIDE 20 MG PO SCH (09:00)
[2018-10-16] MEDS ORDERED: FOLIC ACID E PO SCH (09:00)
[2018-10-16] MEDS ORDERED: HYDROCHLOROTHIAZIDE PO SCH (09:00)
[2018-10-16] MEDS ORDERED: [UNRECOGNIZED DRUG - OTHER] PO SCH (09:00)
[2018-10-16] MEDS ORDERED: BENICAR PO SCH ×2 (09:00)
[2018-10-16] MEDS ORDERED: NON-FORMULARY MEDICATION (Potassium Chloride [Klor-Con 10] 10 MEQ) PO SCH (09:00)
[2018-10-16] MEDS ORDERED: NON-FORMULARY MEDICATION (Simvastatin [Zocor] 40 MG) PO SCH (09:00)
[2018-10-16] MEDS ORDERED: IRON PO SCH (09:00)
[2018-10-16] MEDS: LOPRESSOR PO SCH (09:18)
[2018-10-16] MEDS: NON-FORMULARY MEDICATION (Gabapentin [Gabapentin] 600 MG) PO SCH ×2 (09:19→14:33)
--- NOTE | 2018-10-16 12:26 | US ---
EXAM: Right lower extremity venous Doppler History: Right lower extremity pain and swelling. Technique: Multiple sonographic images through the right lower extremity were obtained. Color duple x Doppler was used to interrogate vascular flow. Findings: The right common femoral, greater saphenous, profunda, superficial femoral, popliteal, per cifuentes, posterior tibial and anterior tibial veins demonstrate spontaneous flow with normal compressio n and normal augmentation. Impression: No sonographic evidence for deep venous thrombosis
--- NOTE | 2018-10-16 12:27 | US ---
EXAM: Bilateral carotid artery Doppler History: Uncontrolled hypertension, dizziness. Technique: Multiple sonographic images through the bilateral internal carotid arteries were obtained . Color duplex Doppler was used to interrogate vascular flow. Findings: The right ICA peak systolic velocity is within normal limits measuring 79 cm/sec. The right ICA/cca PSV ratio is normal at 1.3. The right vertebral artery is patent and demonstrates antegrade flow. G ray scale images demonstrate mild to moderate plaque buildup within the right internal carotid artery . The left ICA peak systolic velocity is within normal limits measuring 87 cm/sec. The left ICA/cca PS V ratio is normal at 1.5. The left vertebral artery is patent and demonstrates antegrade flow. Martinez scale images demonstrate mild to moderate plaque buildup within the left internal carotid artery. Impression: No significant hemodynamic stenosis of the bilateral internal carotid arteries
--- NOTE | 2018-10-16 13:05 | ECHO2D ---
Date of Exam: 10/16/18 Ordering Physician: DR. JM SHEEHAN Room #: 112 Reason for Echo: UNCONTROLLED HTN, DIZZINESS, HEADACHES M-Mode Normal Adult Results LV Dimensions Normal Adult Results AoV Opening excursions >1.6 >1.6 LVEDD-base- 3.5-5.8 4.7 Ao root dimensions 2.0-3.7 3.4 LVESD-base- 3.1-4.6 L. Atrium dimensions 1.9-3.8 3.8 Post. Wall thickness 0.8-1.1 1.4 IV septum (thickness) 0.7-1.2 1.6 Post. Wall excursion 0.72-1.3 NORMAL Septal motion NORMAL Systolic motion R. Ventricular cavity 1.5-2.0 NORMAL LVEF 60% 65% Paradoxical septal wall motion NORMAL 2-D : 2-D M Mode Echocardiogram was performed using apical four chamber and left parasternal long and short axis views. Mitral, tricuspid and aortic valves appear to be normal. Contractility of the left ventricle seems to be normal, so is the cavity size. Left atrial cavity size and aortic root appear to be normal. There is no pericardial effusion. There is no thrombus noted in the left ventricular or left aortic cavity. No mitral valve prolapse noted. M-MODE: MV: NORMAL AV: NORMAL TV: NORMAL PV: CHAMBER SIZE: NORMAL WALL MOTION: NORMAL PERICARDIUM: NORMAL INTERPRETATION: 1. LEFT VENTRICULAR HYPERTROPHY MODERATE 2. NORMAL LEFT VENTRICLE SIZE 3. NORMAL LEFT VENTRICULAR CONTRACTILITY 4. NORMAL VALVES MTDD
[2018-10-16] MEDS: ACETAMINOPHEN PO PRN (13:20)
[2018-10-16] MEDS: [UNRECOGNIZED DRUG - OTHER] PO PRN (13:20)
[2018-10-16] MEDS: HYDROCODONE PO PRN (13:20)
--- NOTE | 2018-10-16 13:47 | PN ---
DATE OF SERVICE: 10/15/18 @ 9:15 P.M. SUBJECTIVE: The patient is alert and doing better. I did tell her that the CT scan of the head does not show any tumors or anything that would cause the headache. The headache may be related tothe blood pressure. Blood pressure on admission was 155/77. Blood pressure at 9:07 p.m. was 164/83. I did advise her that I reduced the Metoprolol to 50 mg twice a day instead of 100 and added Hydrochlorothiazide to the regimen. Home medications before were: Zolpidem, Hydrocodone/APAP, Metoprolol 100 mg twice a day, Amlodipine 10 mg daily, Losartan 50 mg twice a day, Gabapentin 600 mg three times a day, Lorazepam 1/2 mg daily, Lasix 20 mg daily, KCL 10 mEq daily, Simvastatin 40 mg daily. KCL may be discontinued and the patient will most likely be placed on Aldactone with the Hydrochlorothiazide. That may control the blood pressure better. The electrolytes would have to be followed because of the Aldactone combined with the Losartan. She does tell me that she is only taking Hydrocodone without the Tylenol. I will have to check on that to make sure that indeed that is the medication since she has listed that she is allergic to Tylenol. LIZET
[2018-10-16 14:45] VITALS: BP 133/70; TEMP 98.7
[2018-10-16] MEDS ORDERED: ZOLPIDEM TARTRATE 5 MG PO SCH ×2 (21:00→23:00)
--- NOTE | 2018-10-22 09:46 | CONS ---
CODING FOR BILLING 10/16/18 CONSULTATION - LEVEL 5 MTDD
--- NOTE | 2018-10-22 14:39 | DS ---
DATE OF SERVICE: 10/16/18 DISCHARGE DIAGNOSES: 1. UNCONTROLLED HYPERTENSION WITH MEDICINE ADJUSTMENTS DURING HOSPITAL COURSE. BLOOD PRESSURE STABLE AT DISCHARGE. 2. NEAR SYNCOPE. 3. DIZZINESS. 4. PERSISTENT HEADACHE. 5. RIGHT LOWER EXTREMITY WITH NEGATIVE VENOUS SCAN WITH LOWER EXTREMITY EDEMA MOST LIKELY DEPENDENT. 6. SKIN LESION TO BACK AND WILL NEED REMOVAL IN THE OFFICE. 7. SHORTNESS OF BREATH WITH NEGATIVE CHEST X-RAY DURING ADMISSION. 8. WEAKNESS IMPROVED AT DISCHARGE. VITAL SIGNS AT DISCHARGE: Temperature 98.7, pulse 63, blood pressure 133/70, respiratory rate 16, 02 sat 95% on room air. She was running normal sinus rhythm with a bundle branch block at 65 bpm. HISTORY OF PRESENT ILLNESS AND HOSPITAL COURSE: Ms. Matute is a pleasant 88-year-old patient of Dr. Pitts who presented to the office with multiple complaints including elevated blood pressure. Her blood pressure was 210/103 at [facility] the morning of admission. Her daughter was very concerned about this and brought her to the office to be seen and evaluated. She had been having dizzy spells including almost to the point of passing out, very light-headed, presyncopal, persistent headaches for the past several weeks. She noticed swelling in the right lower extremity as well that has been going on for a couple of weeks as well. She also has some shortness of breath that was worse with exertion. Because of her multiple complaints, decision was made to admit the patient to the hospital for further evaluation and workup. She had an echocardiogram done during this hospital stay that showed a normal ejection fraction. Venous ultrasound was negative for deep vein thrombosis. Carotid ultrasound showed no significant carotid stenosis bilaterally. CT of the head was negative for chronic changes. Chest x-ray was normal. On discharge, her lungs were clear to auscultation. Heart regular rate and rhythm. Her blood pressure 124/70 the morning of discharge at 10 a.m. Her NT Pro-BNP was 920, normal TSH, normal procalcitonin and CBC was normal as well. We feel her headache was secondary to the hypertension and that the bilateral lower extremity worse to the right was probably most likely dependent. Her white count was normal. Hemoglobin and hematocrit were normal. Platelet count was normal. D. Dimer was 355.61. Sodium on admission was 143.0, potassium 3.98, BUN 15.2, creatinine 0.70. GFR 79.00, NT Pro-BNP 920. TSH 1.130. The scans have been discussed. DISCHARGE DIET: No added salt diet. DISCHARGE ACTIVITY LEVEL: Up as tolerated. Rest when tired. MEDICATION CHANGES: Metoprolol has been changed to 50 mg twice a day, next dose at bedtime the night of discharge. New addition of HCTZ 12.5 mg twice a day with next dose at bedtime the night of discharge. She is to stop taking the Lasix. New medications have been called to [facility] in [place]. Continue medicines as listed on the nursing discharge packet. DISCHARGE FOLLOWUP APPOINTMENT: Scheduled for Monday, October 22, [address] Pitts and if that appointment is not convenient she has been instructed to call the office for another appointment. Further labs and diagnostic testing will be discussed at that appointment. TIME SPENT: GREATER THAN 30 MINUTES MTDD
--- NOTE | 2018-10-29 11:59 | HP ---
DATE OF SERVICE: 10/15/18 CHIEF COMPLAINT: Elevated blood pressure. Also complains of dizziness, light-headedness, presyncope feeling, headaches for two weeks, swelling in her right leg. HISTORY OF PRESENT ILLNESS: Ms. Matute is a pleasant 88-year-old patient who presented to the office with complaints of elevated blood pressure. Her blood pressure reading was 210/103 at Pain Management the morning of admission. She had been having dizzy spells, feeling light-headed, feeling like she was going to pass out. Also with complaints of headache, frontal and radiating to the right and moving to the back of her head and also they move into her neck. She has been feeling like this for the past several weeks. She has also noted swelling in her right lower extremity. She has had this in the past but is definitely worse here lately. She also complains of a "spot" on her back that is causing her a lot of pain. This skin lesion has grown quite larger per her daughter's report. She is also complaining of shortness of breath that is definitely worse with exertion. She does not have any chest pain or any kind of chest pain on exertion. Because of her multiple complaints and her elevated blood pressure, decision was made to admit Ms. Matute to the hospital as an observation patient for uncontrolled hypertension and to evaluate her dizziness and presyncopal feeling and also evaluate the swelling in her right lower extremity. PAST PERSONAL HISTORY: Right lower extremity cellulitis Disk syndrome or displacement Dyslipidemia Esophageal stricture Herpes Zoster Hypertension Lumbar disk disease with radiculopathy Metabolic syndrome Right foot numbness Peripheral arterial disease History of skin cancer Sleep apnea Small airway disease PAST SURGICAL HISTORY: Appendectomy Cholecystectomy Hysterectomy Bilateral knee replacement, 11/[address] Left shoulder replacement per Dr. Holcomb Lumpectomy, bilateral breast times three FAMILY HISTORY: Cardiac disease in father and mother; malignant neoplasm of the skin in a brother. SOCIAL HISTORY: Former smoker. Denies any alcohol use and denies any substance abuse. MEDICATIONS: (CURRENT HOME) Furosemide 20 mg tablet daily Klor-con 10 mEq daily Lorazepam 0.5 mg tablet daily Gabapentin 600 mg t.i.d. Albuterol 90 mcg every four hours as needed Losartan 50 mg tablet twice a day Amlodipine 10 mg daily Metoprolol 100 mg twice a day Ambien 10 mg nightly Simvastatin 10 mg daily Fluticasone 9.9 spray suspension twice a day Lipan 7.5 one tablet one to three times a day and then Preservision Softgel one capsule two each daily Potassium 99 mg daily Centrum complete multivitamin one tablet daily ALLERGIES: ACETAMINOPHEN, CODEINE, PENICILLIN, DARVOCET N 100 REVIEW OF SYSTEMS: CONSTITUTIONAL: Denies any fevers or chills, nightsweats or weight changes. HEENT: She does complain of some headaches that radiate to the back of her head into the neck. She has been feeling these for the past couple of weeks. CARDIOVASCULAR: She denies any chest pain, irregular rhythm, orthopnea. She does complain of some right lower extremity swelling. This has been going on for a couple of weeks now. LUNGS: She has had some increasing shortness of breath, worse with exertion. She denies any congestion. No history of lung disease. GI: No complaints of abdominal pain, no complaints of nausea, vomiting, diarrhea , constipation or blood in stool. : No reports of dysuria, hematuria, nocturia or urinary incontinence. MUSCULOSKELETAL: Denies any muscle pain, redness or swelling. NEUROLOGIC: She has had reports of dizziness, feeling of lightheadedness and feeling as if she is going to pass out as well as headaches. PSYCHIATRIC: No complaints of anxiety, depression or mood changes. ENDOCRINE: No reports of diabetes mellitus or thyroid disease. No reports of increasing thirst, urination, heat or cold intolerance. INTEGUMENTARY: She has had a skin lesion that has grown in size and is very painful to the right posterior back. PHYSICAL EXAMINATION: GENERAL: She is alert, oriented, pleasant in on acute distress. VITAL SIGNS: At the office visit right before admission: Weight 168 lbs, height 65", pulse 70, respiratory rate 16, blood pressure 182/82, pulse ox 92% on room air. Blood pressure at pain management was recorded at 210/103. HEENT: Head normocephalic, atraumatic. Pupils are equal. Conjunctivae are clear. Mucous membranes are moist. NECK: Supple. No lymphadenopathy. No thyromegaly, no carotid bruits. CARDIOVASCULAR: S1, S2, regular rate and rhythm. Peripheral pulses palpable. No JVD. She does have 2+ pitting edema to the right lower extremity. LUNGS: Diminished to the bases bilaterally. She is no acute distress. ABDOMEN: Soft. Bowel sounds positive all four quads. No rebound tenderness. No rigidity. NEUROLOGIC: Cranial nerves 2-12 grossly intact. No neurological deficits noted. SKIN: Warm and dry. She does have a retrosized skin lesion just above the bra line that is crusty and raised, skin lesion that is rough and tender. LABS AND DIAGNOSTIC TESTING: The patient is a direct admit from the office therefore no labs and diagnostic testing are available for review. ASSESSMENT: 1. Uncontrolled hypertension. 2. Presyncope with dizziness. 3. Persistent headache. 4. Lower extremity edema. 5. Skin lesions in the back. 6. Shortness of breath. 7. Generalized weakness. 8. History of peripheral arterial disease. 9. History of metabolic syndrome. 10. Dyslipidemia. 11. History of lower extremity cellulitis. 12. Small airway disease and sleep apnea. PLAN: Will admit the patient as an observation patient. Will review and monitor blood pressure and adjust medicines accordingly. Plan consultation with cardiology. Plan CT of the head and right lower extremity venous doppler as well as EKG and NT-Pro-BNP, a procalcitonin and CRP, D. dimer, CBC, CMP and chest x-ray just to start. Further orders and recommendations per Dr. Pitts. Ms. Matute is a direct admit from the office. TIME SPENT: GREATER THAN 65 MINUTES MTDD
== END 2018-10-16 15:38 | disposition home or self-care (01) ==
LOC: INTOOBSV 15:59 → MEDSURG B 15:59
PROVIDERS: ADMIT General Practice; ATTEND General Practice
DX: I16.0 Hypertensive urgency (principal); R55 Syncope and collapse; R42 Dizziness and giddiness; R51 Headache; R60.0 Localized edema; R06.02 Shortness of breath; R53.1 Weakness; L98.9 Disorder of the skin and subcutaneous tissue, unspecified
CPT/HCPCS: 36415; 80053; 83880; 84145; 84443; 85025; 85379; 86140; 93005; 93010

== ENCOUNTER 2018-11-19 08:20 | Outpatient (CLI) | END 2018-11-19 08:21 | disposition home or self-care (01) | LOC: LAB 08:20 | PROVIDERS: ATTEND General Practice | DX: R06.02 Shortness of breath (principal) | CPT/HCPCS: 36415; 83880 ==